=== PATIENT | female | born 1990 | race Caucasian/White ===

== ENCOUNTER 2019-08-08 03:18 | Emergency (ER) | payer OTHER ==
[~2019-08-08] VITALS: Ht 160 cm; Wt 61.2 kg
[2019-08-08] MEDS ORDERED: TOPROL XL25 M1 (03:29)
[2019-08-08] MEDS ORDERED: CEFUROXIME500 MG PO (04:06)
[2019-08-08] MEDS ORDERED: KETO10TA2 PO (04:06)
[2019-08-08] MEDS ORDERED: ALLEGRA ALLERG180 MG PO (04:06)
[2019-08-08] MEDS ORDERED: FLONASE16 GM NASAL (04:06)
== END 2019-08-08 04:15 | disposition home or self-care (01) ==
LOC: ER 03:18
DX: H66.92 Otitis media, unspecified, left ear (principal); J06.9 Acute upper respiratory infection, unspecified